=== PATIENT | female | born 1945 | race Caucasian/White ===

== ENCOUNTER 2016-05-09 09:15 | Day surgery (SDC) | payer BC, OTHER ==
[2016-05-09] MEDS ORDERED: D5 LR 1000 ML 1,000 ML IV ONE (09:29)
[2016-05-09] MEDS ORDERED: DIPRIVAN VIAL 20 ML ONE (11:07)
[2016-05-09 11:54] VITALS: BP 145/63
== END 2016-05-09 11:45 | disposition home or self-care (01) ==
LOC: SURG1 09:15
PROVIDERS: ATTEND Internal Medicine Gastroenterology
PROC: 0DB68ZX Excision of Stomach, Via Natural or Artificial Opening Endoscopic, Diagnostic (ICD-10-PCS; principal; 2016-05-09 12:15)
PROC: 0DB88ZX Excision of Small Intestine, Via Natural or Artificial Opening Endoscopic, Diagnostic (ICD-10-PCS; principal; 2016-05-09 12:15)
PROC: 0DJ08ZZ Inspection of Upper Intestinal Tract, Via Natural or Artificial Opening Endoscopic (ICD-10-PCS; principal; 2016-05-09 12:15)
PROC: 0D757ZZ Dilation of Esophagus, Via Natural or Artificial Opening (ICD-10-PCS; principal; 2016-05-09 12:15)
DX: R13.19 Other dysphagia (principal); R10.13 Epigastric pain; R19.7 Diarrhea, unspecified; K21.9 Gastro-esophageal reflux disease without esophagitis; K25.9 Gastric ulcer, unspecified as acute or chronic, without hemorrhage or perforation; K29.60 Other gastritis without bleeding; K20.8 Other esophagitis; K22.4 Dyskinesia of esophagus; K22.2 Esophageal obstruction
CPT/HCPCS: A4217; J3490; J7120

== ENCOUNTER → 2016-06-05 | Outpatient (CLI) | payer BC, OTHER ==
[2016-05-09 11:54] VITALS: BP 145/63
--- NOTE | 2016-06-05 10:03 | RAD ---
HISTORY: Left knee pain. Complete radiographic series of the left knee joint. Findings: Examination of the knee joint demonstrate no evidence for acute fracture or dislocation. The medial and lateral tibiofemoral compartments demonstrate moderate to severe joint space narrowing and oste ophyte formation; most severe in the medial knee compartment. The findings are compatible with moder ate to severe degenerative joint disease. The lateral radiograph demonstrates a very small suprapat ellar joint effusion. Patellofemoral compartment also shows moderate to severe DJD with chondromala brenda patella. There is mild soft tissue swelling about the knee joint without underlying bony injury or fracture seen. No aggressive / destructive lytic bony lesions are seen. IMPRESSION: Moderate to severe left knee joint tricompartmental osteoarthritis, most severe medially, with advan roseanne central chondromalacia patella. No evidence for an acute fracture, subluxation, or lytic bony le emery. Reported By:
--- NOTE | 2016-06-05 10:04 | RAD ---
HISTORY: Right knee pain. Complete series of the right knee joint. Findings: Examination of the right knee demonstrate no evidence for acute fracture, subluxation, or dislocatio n. The medial and lateral tibiofemoral compartments demonstrate moderate joint space narrowing and marginal osteophyte formation. The findings are compatible with mild degenerative joint disease. T he lateral radiograph fails to demonstrate significant joint effusion. Patellofemoral compartment s hows moderate DJD and moderate chondromalacia patella. IMPRESSION: Moderate tricompartmental knee joint osteoarthritis. Reported By:
--- NOTE | 2016-06-05 10:22 | RAD ---
HISTORY: Chronic low back pain. No injury Study: Five view lumbar spine Comparison: June 01, 2010 Findings: There is bilateral sacralization of L5. There is multilevel lumbar spondylosis. Disc space narrowing is present at L4-5 and also at T12-L1. Remainder disc spaces appear well maintained. Facet joint ar thritic changes are present bilaterally at L4-5. Pedicles, transverse processes and posterior elemen ts are intact. There is a mild S-shaped thoracolumbar scoliosis. IMPRESSION: No fracture or subluxation. Disc space narrowing at L4-5 and T12-L1. There is multilevel spondylosis. Reported By:
== END ==
LOC: RAD 09:21
PROVIDERS: ATTEND Orthopaedic Surgery
DX: M25.561 Pain in right knee (principal); M25.562 Pain in left knee; M17.0 Bilateral primary osteoarthritis of knee; M47.896 Other spondylosis, lumbar region
CPT/HCPCS: 72110; 73564

== ENCOUNTER 2016-10-10 06:58 | Day surgery (SDC) | payer BC, OTHER ==
[2016-10-10] MEDS ORDERED: D5 LR 1000 ML 1,000 ML IV ONE (07:12)
[2016-10-10] MEDS ORDERED: DIPRIVAN VIAL 10 ML ONE ×2 (08:10→08:30)
[2016-10-10] MEDS ORDERED: XYLOCAINE 2 % (PLAIN) ONE (08:11)
[2016-10-10 09:09] VITALS: BP 120/80
== END 2016-10-10 09:05 | disposition home or self-care (01) | DRG 392 ==
LOC: SURG1 06:58
PROVIDERS: ATTEND Internal Medicine Gastroenterology
PROC: 0DB68ZX Excision of Stomach, Via Natural or Artificial Opening Endoscopic, Diagnostic (ICD-10-PCS; principal; 2016-10-10 12:45)
PROC: 0D757ZZ Dilation of Esophagus, Via Natural or Artificial Opening (ICD-10-PCS; principal; 2016-10-10 12:45)
PROC: 0DJ08ZZ Inspection of Upper Intestinal Tract, Via Natural or Artificial Opening Endoscopic (ICD-10-PCS; principal; 2016-10-10 12:45)
PROC: 0DB88ZX Excision of Small Intestine, Via Natural or Artificial Opening Endoscopic, Diagnostic (ICD-10-PCS; principal; 2016-10-10 12:45)
DX: R13.19 Other dysphagia (principal); R10.13 Epigastric pain; K21.9 Gastro-esophageal reflux disease without esophagitis; Z87.11 Personal history of peptic ulcer disease; K25.9 Gastric ulcer, unspecified as acute or chronic, without hemorrhage or perforation; K22.4 Dyskinesia of esophagus; K20.8 Other esophagitis; K22.2 Esophageal obstruction; K29.60 Other gastritis without bleeding
CPT/HCPCS: 99100; A4217; J2001; J3490; J7120

== ENCOUNTER 2021-03-12 15:02 | Observation (INO) ==
--- NOTE | 2021-03-12 16:39 | DR.GENAD ---
HPI Time Seen Time Seen by Provider: 03/12/21 16:36 PCP Primary Care Physician: RADHA Complaint/Symptoms Chief Complaint Doctors Comments: 75 y/o female presents for evaluation. Started with URI symptoms 6 days ago, was having sinus congestion, sinus pressure, headache, cough. Seen in the office 2 days later. Given 2 injections, and 4 prescriptons, including an antibiotic. Started feeling worse that night. Urinating frequently, small amounts, then developed frequent diarrhe. Diarrhea lasted 2 days, became bloody at the end. Having burning from her throat down thru her stomach, to the lower abdomen. Pain has been off/on. Associated with lightheadedness, dizziness. Had hoarseness, but better today. Cough not as bad, Chief Complaint:: PT. C/O WEAKNESS, ABDOMINAL PAIN, DIARRHEA, HEADACHE. PT. SEEN PCP ON FRIDAY AND RECEIVED 2 INJECTIONS. PT. STATES SHE HAD SEVERAL EPISODES OF BLOODY DIARRHEA ON FRIDAY. PT. C/O BURINING SENSATION FROM THROAT DOWN TO BOTTOM OF ABDOMEN. Self Treatment fo Chief Complaint: RELUX MEDICATION COVID-19 Coronavirus risk:travel/contact w/high risk person: No Has patient experienced Coronavirus symptoms: No Nurses notes reviewed Nurses Notes Review: Yes Source History Provided: Patient Timing Onset of Chief Complaint: 03/06/21 PMH PMH Past Medical History: Yes Past Medical History: Arthritis, GERD and Hypothyroidism Past Medical History Comment: BLEEDING ULCER Past Surgical History: Yes Surgical History: Cholecystectomy, Ortho Surgery, Tonsillectomy and Other Family History History of Family Medical Conditions: No Social History Does patient currently use any type of tobacco product: No Have you used tobacco products in the last 12 months: No Type of Tobacco Use: None Does any household member use tobacco: No Alcohol Use: None Do you use any recreational Drugs:: No Lives With: Family Lives Where: Home Travel Risk Coronavirus risk:travel/contact w/high risk person: No Has patient experienced Coronavirus symptoms: No Infectious screening In the last 2 months have you had wt loss of >10#?: NO Have you had fever, night sweats or hemotysis?: No Have you traveled outside the country in the last 6 months?: No Isolation: Droplet ROS Review of Systems Constitutional: Malaise and Weakness Eyes: No Symptoms Reported ENTM: Nose Congestion Respiratoy: Non-Productive Cough Cardiovascular: No Symptoms Reported Gastrointestinal/Abdominal: Abdominal Pain, Diarrhea and Nausea Genitourinary: Dysuria and Frequency Neurological: Weakness and Dizziness Musculoskeletal: No Symptoms Reported Integumentary: No Symptoms Reported Hematologic/Lymphatic: No Symptoms Reported Psychiatric: No Symptoms Reported All Other Systems: Reviewed and Negative PE Vital Signs Vitals: Temperature 98.7 F Pulse Rate 73 Respiratory Rate 20 Blood Pressure [Left Arm] 148/63 Blood Pressure 166/70 O2 Sat by Pulse Oximetry 95 General Limitations: No Limitations General Appearance: Alert and In No Apparent Distress Head Head Exam: Normal Inspection Eyes Eye exam: Normal Appearance, PERRL and EOMI ENT ENT Exam: Normal Exam, Normal Oropharynx and Mucous Membranes Moist TM/Canal Exam: Bilateral: Normal Nose Exam: Normal Nose Exam Throat Exam: Normal Inspection Neck Neck Exam: Normal Inspection and Full ROM; negative Tenderness Chest Chest Inspection: Normal Inspection Respiratory Respiratory Exam: Normal Lung Sounds Bilat; negative Accessory Muscle Use and Respiratory Distress Respiratory Exam: Bilateral: Clear to Auscultation Cardiovascular Cardiovascular Exam: Regular Rate, Normal Rhythm and Normal Heart Sounds Abdominal Exam Abdominal Exam: Normal Inspection, Normal Bowel Sounds and Soft; negative Tenderness Extremities Extremities Exam: Normal Inspection and Full ROM; negative Edema Back Back Exam: Normal Inspection; negative (R) CVA Tenderness and (L) CVA Tenderness Neurologic Neurological Exam: Alert, Oriented X3 and CN II-XII Intact Psychiatric Psychiatric Exam: Normal Affect Skin Skin Exam: Warm and Dry MDM Differential Diagnosis Differential Diagnosis: Covid, viral illness, lower GI bleed, GERD, diverticular bleed, AVM, Hemorr COURSE Treatment Treatment: Ill with URI symptoms x 6 days, now with diffuse burning, dizziness, report of bloody diarrhea. W/u initiated. 1900 - Pt is positive for covid. Also with low WBCs, 1.8. Recommend admmission for further evaluation and treatment. Discussed with Dr Park, accepts the admission. [facility]OR Labs Reviewed Result Diagrams: 03/12/21 17:17 03/12/21 17:17 Laboratory: WBC 1.8 X10^3/uL (3.6-10.0) L* 03/12/21 17:17 RBC 4.42 X10^6/uL (3.5-5.4) 03/12/21 17:17 Hgb 14.1 g/dL (12.0-16.0) 03/12/21 17:17 Hct 40.2 % (36.0-47.0) 03/12/21 17:17 MCV 91.0 fL (80.0-100.0) 03/12/21 17:17 MCH 32.0 pg (27.0-34.0) 03/12/21 17:17 MCHC 35.1 g/dL (33.0-35.0) H 03/12/21 17:17 RDW 13.0 % (11.6-16.5) 03/12/21 17:17 Plt Count 115 X10^3/uL (150.0-450.0) L 03/12/21 17:17 MPV 8.2 fL (7.4-11.0) 03/12/21 17:17 Neut % (Auto) 27.5 % (42.0-75.0) L 03/12/21 17:17 Lymph % (Auto) 54.0 % (21.0-51.0) H 03/12/21 17:17 [place] % (Auto) 17.7 % (0.0-13.0) H 03/12/21 17:17 Eos % (Auto) 0.5 % (0.9-2.9) L 03/12/21 17:17 Baso % (Auto) 0.3 % (0.2-1.0) 03/12/21 17:17 Neut # (Auto) 0.5 x10^3/uL (2.2-4.8) L 03/12/21 17:17 Lymph # (Auto) 1.0 X10^3/uL (1.3-2.9) L 03/12/21 17:17 [place] # (Auto) 0.3 x10^3/uL (0.3-0.8) 03/12/21 17:17 Eos # (Auto) 0.0 x10^3/uL (0.0-0.2) 03/12/21 17:17 Baso # (Auto) 0.0 X10^3/uL (0.0-0.1) 03/12/21 17:17 Absolute Nucleated RBC 0.3 /100WBC 03/12/21 17:17 Sodium 139 mmol/L (136-145) 03/12/21 17:17 Corrected Sodium TNP 03/12/21 17:17 Potassium 3.5 mmol/L (3.5-5.1) 03/12/21 17:17 Chloride 102 mmol/L (98-107) 03/12/21 17:17 Carbon Dioxide 26.0 mmol/L (21-32) 03/12/21 17:17 BUN 9 mg/dL (7-18) 03/12/21 17:17 Creatinine 0.76 mg/dL (0.55-1.02) 03/12/21 17:17 Est GFR (MDRD) Af Amer > 60 (>60) 03/12/21 17:17 Est GFR (MDRD) Non-Af > 60 (>60) 03/12/21 17:17 Glucose 96 mg/dL (65-99) 03/12/21 17:17 Calcium 9.0 mg/dL (8.5-10.1) 03/12/21 17:17 Corrected Calcium TNP 03/12/21 17:17 Total Bilirubin 0.90 mg/dL (0.2-1.0) 03/12/21 17:17 AST 92 Units/L (15-37) H 03/12/21 17:17 ALT 107 Units/L (12-78) H 03/12/21 17:17 Alkaline Phosphatase 57 Units/L (46-116) 03/12/21 17:17 Creatine Kinase 137 Units/L (26-192) 03/12/21 17:17 CK-MB (CK-2) 2.1 ng/mL (0-4.0) 03/12/21 17:17 CK/CKMB % Calc 1.5 % (<4) 03/12/21 17:17 Troponin I High Sens 10.6 ng/L (4.0-60.0) 03/12/21 17:17 Total Protein 8.1 g/dL (6.4-8.2) 03/12/21 17:17 Albumin 3.7 g/dL (3.4-5.0) 03/12/21 17:17 Globulin 4.4 g/dL (2.5-4.5) 03/12/21 17:17 Albumin/Globulin Ratio 0.8 Ratio (1.1-2.1) L 03/12/21 17:17 Lipase 137 Units/L (73-393) 03/12/21 17:17 Specimen Type Clean catch urine 03/12/21 17:19 Urine Color Yellow (YELLOW) 03/12/21 17:19 Urine Appearance Clear (CLEAR) 03/12/21 17:19 Urine pH 5.0 (5.0 - 8.0) 03/12/21 17:19 Ur Specific [place] 1.020 (1.000-1.030) 03/12/21 17:19 Urine Protein 2+ (NEGATIVE) 03/12/21 17:19 Urine Glucose (UA) Negative (NEGATIVE) 03/12/21 17:19 Urine Ketones 3+ (NEGATIVE) 03/12/21 17:19 Urine Occult Blood 1+ (NEGATIVE) 03/12/21 17:19 Urine Nitrite Negative (NEGATIVE) 03/12/21 17:19 Urine Bilirubin Negative (NEGATIVE) 03/12/21 17:19 Urine Urobilinogen Normal (NORMAL) 03/12/21 17:19 Ur Leukocyte Esterase Negative (NEGATIVE) 03/12/21 17:19 Urine RBC 3-5 /HPF (0-3) A 03/12/21 17:19 Urine WBC 3-5 /HPF (0-5) 03/12/21 17:19 Ur Squamous Epith Cells Rare /HPF (NEGATIVE) 03/12/21 17:19 Urine Bacteria Trace /HPF (NEGATIVE) 03/12/21 17:19 Urine Mucus Rare /HPF (NEGATIVE) 03/12/21 17:19 Ur Culture Indicated? No/not indicated 03/12/21 17:19 SARS-CoV-2 (PCR) Positive (NEGATIVE) A 03/12/21 16:56 Influenza Type A (PCR) Negative (NEGATIVE) 03/12/21 16:56 Influenza Type B (PCR) Negative (NEGATIVE) 03/12/21 16:56 RSV (PCR) Negative (NEGATIVE) 03/12/21 16:56 Opioid Opioid Risk Tool Age (Ken box if 16-45): No History of Preadolescent Sexual Abuse: No Total: 0 Total Score Risk Category: Low Risk Copyright: Luis M BRYSON predicting aberrant behaviors Diagnosis Discharge Problem: COVID-19 virus infection, Acute lower GI bleeding Leukopenia Qualifiers: Leukopenia type: unspecified Qualified Code(s): D72.819 - Decreased white blood cell count, unspecified
[2021-03-12] MEDS ORDERED: ZOFRAN INJ 4 MG VIAL IVP ONE (16:55)
[2021-03-12] MEDS ORDERED: NS 500 ML IV 500 ML IV ONE ×2 (16:55→17:10)
[2021-03-12] MEDS ORDERED: PROTONIX INJ 40 MG VIAL IVP ONE (16:55)
[2021-03-12] MEDS ORDERED: PROTONIX INJ 40 MG VIAL ONE (17:10)
[2021-03-12] MEDS ORDERED: ZOFRAN INJ 4 MG VIAL ONE (17:10)
[2021-03-12 17:31] LABS: MONOCYTES # (AUTO) 0.3 x10^3/uL (0.3-0.8); MONOCYTES % (AUTO) 17.7 % (0.0-13.0); NEUTROPHILS # (AUTO) 0.5 x10^3/uL (2.2-4.8)
[2021-03-12 17:32] LABS: BILIRUBIN,URINE NEGATIVE (NEGATIVE); BLOOD/HEMOGLOBIN,URINE 1+ (NEGATIVE); GLUCOSE, URINE NEGATIVE (NEGATIVE); KETONES,URINE 3+ (NEGATIVE); LEUKOCYTE ESTERASE ,URINE NEGATIVE (NEGATIVE); NITRITES,URINE NEGATIVE (NEGATIVE); PROTEIN,URINE 2+ (NEGATIVE); UROBILINOGEN,URINE NORMAL (NORMAL)
[2021-03-12 17:35] LABS: BASOPHILS % (AUTO) 0.3 % (0.2-1.0); EOSINOPHILS % (AUTO) 0.5 % (0.9-2.9); HEMATOCRIT 40.2 % (36.0-47.0); HEMOGLOBIN 14.1 g/dL (12.0-16.0); MEAN CORPUSCULAR HGB CONC 35.1 g/dL (33.0-35.0); MEAN PLATELET VOLUME 8.2 fL (7.4-11.0); NEUTROPHILS % (AUTO) 27.5 % (42.0-75.0); PLATELET COUNT 115 X10^3/uL (150.0-450.0); RED BLOOD COUNT 4.42 X10^6/uL (3.5-5.4)
[2021-03-12 17:37] LABS: WHITE BLOOD COUNT 1.8 X10^3/uL (3.6-10.0)
[2021-03-12 17:45] LABS: APPEARANCE,URINE CLEAR (CLEAR); COLOR,URINE YELLOW (YELLOW)
[2021-03-12 17:46] LABS: BACTERIA,URINE TRACE /HPF (NEGATIVE); SQUAMOUS EPITHELIAL CELL,UR RARE /HPF (NEGATIVE)
--- NOTE | 2021-03-12 17:47 | RAD ---
HISTORYC/O WEAKNESS, ABDOMINAL PAIN, DIARRHEA, HEADACHE. PT. SEEN PCP ON FRIDAY AND RECEIVED 2 INJECTIONS. PT. STATES SHE HAD SEVERAL EPISODES OF BLOODY DIARRHEA ON FRIDAY. PT. C/O BURINING SENSATION FROM THROAT DOWN TO BOTTOM OF ABDOMEN.STUDYCHEST, 1 VIEWCOMPARISONNoneFINDINGSThe lungs are clear. No pneumothorax or significant effusion.Heart size is normal. Vascular calcifications are present compatible with atherosclerosis.Degenerative changes are present in the spine.IMPRESSION1. No significant abnormalityElectronically signed by: Conner Combs (Mar 12, 2021 17:45:48)
[2021-03-12 17:56] LABS: ALANINE AMINOTRANSFERASE 107 Units/L (12-78); ALBUMIN 3.7 g/dL (3.4-5.0); ALKALINE PHOSPHATASE 57 Units/L (46-116); ASPARTATE AMINO TRANSFERASE 92 Units/L (15-37); BLOOD UREA NITROGEN 9 mg/dL (7-18); CHLORIDE 102 mmol/L (98-107); CKMB % 1.5 % (<4); CREATINE KINASE 137 Units/L (26-192); CREATINE KINASE MB 2.1 ng/mL (0-4.0); CREATININE 0.76 mg/dL (0.55-1.02); GLUCOSE 96 mg/dL (65-99); LIPASE 137 Units/L (73-393); POTASSIUM 3.5 mmol/L (3.5-5.1); SODIUM 139 mmol/L (136-145); TOTAL PROTEIN 8.1 g/dL (6.4-8.2); eGFR NON BLACK RACES > 60 (>60)
[2021-03-12] MEDS: SYNTHROID 100 mcg TAB PO SCH ×2 (22:25→23:12)
[2021-03-12 22:34] VITALS: BMI 33.3
[2021-03-13] MEDS: D5 1/2 NS 1,000 ML 1,000 ML IV SCH ×2 (01:11→14:12)
[2021-03-13] MEDS: SOLU-Medrol 40 MG VIAL IVP SCH ×4 (01:11→21:45)
[2021-03-13 05:24] LABS: BASOPHILS % (AUTO) 0.3 % (0.2-1.0); EOSINOPHILS % (AUTO) 0.2 % (0.9-2.9); HEMATOCRIT 38.8 % (36.0-47.0); HEMOGLOBIN 13.9 g/dL (12.0-16.0); MEAN CORPUSCULAR HGB CONC 35.9 g/dL (33.0-35.0); MEAN CORPUSCULAR VOLUME 89.2 fL (80.0-100.0); MEAN PLATELET VOLUME 8.3 fL (7.4-11.0); MONOCYTES # (AUTO) 0.2 x10^3/uL (0.3-0.8); MONOCYTES % (AUTO) 8.1 % (0.0-13.0); NEUTROPHILS # (AUTO) 0.8 x10^3/uL (2.2-4.8); NEUTROPHILS % (AUTO) 40.4 % (42.0-75.0); PLATELET COUNT 110 X10^3/uL (150.0-450.0); RED BLOOD COUNT 4.35 X10^6/uL (3.5-5.4); RED CELL DISTRIBUTION WIDTH 12.6 % (11.6-16.5)
[2021-03-13 05:26] LABS: ALANINE AMINOTRANSFERASE 102 Units/L (12-78); ALBUMIN 3.7 g/dL (3.4-5.0); ALKALINE PHOSPHATASE 57 Units/L (46-116); ASPARTATE AMINO TRANSFERASE 82 Units/L (15-37); BLOOD UREA NITROGEN 7 mg/dL (7-18); CALCIUM 8.8 mg/dL (8.5-10.1); CARBON DIOXIDE 20.3 mmol/L (21-32); CHLORIDE 103 mmol/L (98-107); COR NA(FOR HYPERGLY) 139 mmol/L (136-145); CREATININE 0.84 mg/dL (0.55-1.02); GLUCOSE 150 mg/dL (65-99); POTASSIUM 3.9 mmol/L (3.5-5.1); SODIUM 138 mmol/L (136-145); eGFR NON BLACK RACES > 60 (>60)
[2021-03-13 05:45] LABS: BAND NEUTROPHILS % 1 % (0-10); PLATELET MORPHOLOGY COMMENT NORMAL (NORMAL)
[2021-03-13 08:18] LABS: ABG ALLEN TEST POS; ABG BASE EXCESS 0.9 mmol/L (-2.0-2.0); ABG HCO3 23.8 mmol/L (22-26)
[2021-03-13] MEDS ORDERED: PriLOSEC PO SCH (09:00)
[2021-03-13] MEDS ORDERED: ZOFRAN INJ 4 MG VIAL IVP PRN (09:41)
[2021-03-13] MEDS ORDERED: REMDESIVIR 200 MG in NS 250 ML IV 250 ML IV NR (09:44)
--- NOTE | 2021-03-13 09:59 | DR.H&P ---
H&P - History & Physical for Day of: H&P Date: 03/12/21 - Chief Complaint Chief Complaint: WEAKNESS, ABDOMINAL PAIN, NAUSEA, DIARRHEA, SORE THROAT, HEADACHE, SHORTNESS OF BREATH, AND SINUS CONGESTION X 7 DAYS - History of Present Illness History of Present Illness: IS A 75 YEAR OLD PATIENT OF OURS. SHE PRESENTED TO THE ER WITH COMPLAINTS OF WEAKNESS, ABDOMINAL PAIN, NAUSEA, DIARRHEA, SORE THROAT, HEADACHE, SHORTNESS OF BREATH, AND SINUS CONGESTION X 7 DAYS. SHE REPORTS PASSING SMALL AMOUNT OF BLOOD IN STOOL AND HAVING URINARY FREQUENCY. SHE WAS SEEN IN THE OFFICE AROUND FRIDAY OF LAST WEEK AND WAS GIVEN AN ANTIBIOTIC AND STEROID INJECTION. AT THAT TIME, SHE WAS SWABBED FOR COVID- 19(SEND OUT) AND GIVEN PRESCRIPTIONS FOR CIPRO 500MG PO BID X 10 DAYS, ZOFRAN 4MG PO Q6H PRN, AND FIORICET PRN FOR HEADACHES. SHE DENIES SIGNIFICANT IMPROVEMENT IN SYMPTOMS DESPITE COMPLIANCE WITH MEDICATIONS. HER PMH INCLUDES ARTHRITIS, GERD, HYPOTHYROIDISM, PUD, CHOLECYSTECTOMY, AND TONSILLECTOMY. ON ARRIVAL TO THE ER, VITALS WERE 98.7-87-20-95%-114/68. HER SATURATIONS DID DROP TO 89-90% ON ROOM AIR WHILE IN THE ER. SHE WAS PLACED ON SUPPLEMENTAL OXYGEN VIA NASAL CANNULA AT 2 LPM. LABS WERE OBTAINED. ABNORMAL LAB VALUES INCLUDE THE FO LLOWING: WBC 1.8, PLT COUNT 115, AST 92, ALT 107. A URINALYSIS WAS OBTAINED AND REVEALED: WBC 3-5, RBC 3-5, LEUKOCYTES NEGATIVE, BACTERIA TRACE, OCCULT BLOOD 1+. COVID-19 POSITIVE. INFLUENZA AND RSV NEGATIVE. A CHEST XRAY WAS OBTAINED AND REVEALED: 1. No significant abnormality. IN THE ER, SHE WAS GIVEN A NORMAL SALINE BOLUS, PROTONIX 40MG IV X 1, ZOFRAN 4MG IV X 1. SHE WAS ADMITTED TO THE HOSPITAL FOR FURTHER EVALUATION AND TREATMENT OF COVID-19, INTRACTABLE NAUSEA AND DIARRHEA, LOWER GI BLEED, AND LEUKOPENIA. SHE WAS STARTED ON SUPPLEMENTAL OXYGEN. D51/2NS AT 80 ML/HR, SOLU-MEDROL 40MG IV Q8H, REMDESIVIR 100MG IV DAILY X 5 DAYS, PRILOSEC 20MG PO DAILY, SYNTHROID 100MCG PO HS, ZOFRAN 4MG IV Q4H PRN, PEPCID 20MG IV BID, PROTONIX 40MG IV BID, FLUVOXAMINE 50MG PO BID, IVERMECTIN DAILY X 5 DAYS, AND IMMUNE SUPPLEMENTS. OTHERWISE, WE PLAN TO FOLLOW UP WITH AM LABS AND CONTINUE TO MONITOR. TIME SPENT ON CLINICAL ASSESSMENT, REVIEWING LABS AND IMAGING, DECISION MAKING, AND DOCUMENTATION WAS GREATER THAN 75 MINUTES. - Past Medical History Past Medical History: Arthritis, GERD, Hypothyroidism, PUD - Past Surgical History Surgical History: Cholecystectomy, Ortho Surgery, Tonsillectomy - Family History Family Medical History: [place], Hypertension - Social History Does patient currently use any type of tobacco product: No Have you used tobacco products in the last 12 months: No Type of Tobacco Use: None Does any household member use tobacco: No Alcohol Use: None - Medications Home Medications: moxifloxacin [From Avelox] Allergy (Verified 03/12/21 15:10) - Review of Systems Constitutional: Weakness Eyes: No Symptoms Reported ENT: Nose Congestion, Throat Pain Respiratory: Shortness of Breath Cardiovascular: No Symptoms Reported Gastrointestinal: See HPI, Nausea, Abdominal Pain, Diarrhea, Melena Genitourinary: No Symptoms Reported Musculoskeletal: No Symptoms Reported Skin: No Symptoms Reported Neurological: Weakness - Physical Exam Vital Signs: Temperature 98.4 F Pulse Rate 63 Respiratory Rate 28 Blood Pressure [Left Arm] 148/63 Blood Pressure 134/69 O2 Sat by Pulse Oximetry 94 Oriented: Normal Eyes: Normal Ear: Normal Nose: Normal Throat: Normal Respiratory: Diminished Throughout Cardiovascular: Normal : Normal Auscultation: Bowel Sounds: Normal Palpation: Normal Tenderness: Normal Skin: Normal Musculoskeletal: Normal Psychiatric: Normal Mood Description: Calm Affect: Normal Speech Pattern: Clear - Assessment/Plan (1) COVID-19 virus infection Status: Acute Plan: ADMIT, SUPPLEMENTAL OXYGEN, D51/2NS AT 80 ML/HR, SOLU-MEDROL 40MG IV Q8H, REMDESIVIR 100MG IV DAILY X 5 DAYS, PRILOSEC 20MG PO DAILY, SYNTHROID 100MCG PO HS, ZOFRAN 4MG IV Q4H PRN, PEPCID 20MG IV BID, PROTONIX 40MG IV BID, FLUVOXAMINE 50MG PO BID, IVERMECTIN DAILY X 5 DAYS, AND IMMUNE SUPPLEMENTS. (2) Acute lower GI bleeding Status: Acute (3) Leukopenia Qualifiers: Leukopenia type: unspecified Qualified Code(s): D72.819 - Decreased white blood cell count, unspecified Status: Acute (4) Intractable nausea and vomiting Status: Acute (5) Intractable diarrhea Status: Acute - Allergies Allergies/Adverse Reactions: Allergies Allergy/AdvReac Type Severity Reaction Status Date / Time moxifloxacin [From Avelox] Allergy Verified 03/12/21 15:10
[2021-03-13] MEDS ORDERED: PHARMACY CONSULT - IVERMECTIN XX SCH (10:00)
[2021-03-13] MEDS: IVERMECTIN PO SCH (10:34)
[2021-03-13] MEDS: ZINC SULFATE PO SCH ×2 (10:34→21:45)
[2021-03-13] MEDS: PROTONIX INJ 40 MG VIAL IVP SCH ×2 (10:34→21:45)
[2021-03-13] MEDS: VITAMIN C PO SCH ×3 (10:34→21:45)
[2021-03-13] MEDS: LUVOX PO SCH ×2 (10:34→21:45)
[2021-03-13] MEDS: PEPCID 20 MG IV PREMIX* 20 MG/50 ML BAG IV SCH ×2 (10:34→21:45)
[2021-03-13] MEDS: SYNTHROID 100 mcg TAB PO SCH (21:45)
[2021-03-13] MEDS ORDERED: NS 50 ML IV 50 ML IV ONE (22:15)
[2021-03-14] MEDS: D5 1/2 NS 1,000 ML 1,000 ML IV SCH (03:25)
[2021-03-14] MEDS: VITAMIN C PO SCH ×2 (05:10→09:35)
[2021-03-14] MEDS: SOLU-Medrol 40 MG VIAL IVP SCH (05:10)
[2021-03-14 05:38] LABS: BASOPHILS % (AUTO) 0.1 % (0.2-1.0); HEMATOCRIT 34.1 % (36.0-47.0); HEMOGLOBIN 12.2 g/dL (12.0-16.0); LYMPHOCYTES # (AUTO) 1.2 X10^3/uL (1.3-2.9); LYMPHOCYTES % (AUTO) 23.6 % (21.0-51.0); MEAN CORPUSCULAR HEMOGLOBIN 32.2 pg (27.0-34.0); MEAN CORPUSCULAR HGB CONC 35.9 g/dL (33.0-35.0); MEAN CORPUSCULAR VOLUME 89.8 fL (80.0-100.0); MEAN PLATELET VOLUME 8.7 fL (7.4-11.0); MONOCYTES # (AUTO) 0.6 x10^3/uL (0.3-0.8); MONOCYTES % (AUTO) 10.7 % (0.0-13.0); NEUTROPHILS # (AUTO) 3.4 x10^3/uL (2.2-4.8); NEUTROPHILS % (AUTO) 65.6 % (42.0-75.0); PLATELET COUNT 128 X10^3/uL (150.0-450.0); RED CELL DISTRIBUTION WIDTH 13.1 % (11.6-16.5); WHITE BLOOD COUNT 5.2 X10^3/uL (3.6-10.0)
[2021-03-14 05:39] LABS: ALANINE AMINOTRANSFERASE 65 Units/L (12-78); ALKALINE PHOSPHATASE 52 Units/L (46-116); ASPARTATE AMINO TRANSFERASE 40 Units/L (15-37); BLOOD UREA NITROGEN 9 mg/dL (7-18); CALCIUM 8.3 mg/dL (8.5-10.1); CARBON DIOXIDE 26.3 mmol/L (21-32); CHLORIDE 109 mmol/L (98-107); COR CA(FOR HYPOALB) 9.1 mg/dL (8.5-10.1); COR NA(FOR HYPERGLY) 143 mmol/L (136-145); CREATININE 0.73 mg/dL (0.55-1.02); GLUCOSE 136 mg/dL (65-99); POTASSIUM 3.8 mmol/L (3.5-5.1); SODIUM 142 mmol/L (136-145); TOTAL PROTEIN 6.6 g/dL (6.4-8.2); eGFR NON BLACK RACES > 60 (>60)
--- NOTE | 2021-03-14 06:21 | RAD ---
HISTORYCOVID-19STUDYAP [id number]/17/2022FINDINGSContinu ed normal heart size and contour with clear lungs and pleural spaces. There is no evidence for pneumonia, atelectasis or CHF.IMPRESSIONNo interval change or acute chest abnormality demonstrated.Electronically signed by: LISA MCWILLIAMS (Mar 14, 2021 06:20:25)
[2021-03-14] MEDS ORDERED: REMDESIVIR 100 MG in NS 250 ML IV 250 ML IV SCH (09:00)
[2021-03-14] MEDS ORDERED: PEPCID 20 MG VIAL 20 MG in NS 50 ML IV 50 ML IV SCH (09:00)
[2021-03-14] MEDS: PROTONIX INJ 40 MG VIAL IVP SCH (09:35)
[2021-03-14] MEDS: IVERMECTIN PO SCH (09:35)
[2021-03-14] MEDS: ZINC SULFATE PO SCH (09:35)
[2021-03-14] MEDS: LUVOX PO SCH (09:35)
[2021-03-14 11:41] VITALS: TEMP 97.4
[2021-03-14 12:55] VITALS: BP 154/69; PULSE 60; O2SAT 99
== END 2021-03-14 12:56 | disposition home or self-care (01) ==
LOC: ER 15:02 → ICU 15:02
PROVIDERS: ADMIT Family Medicine; ATTEND Internal Medicine